=== PATIENT | male | born 1935 | race Caucasian/White ===

== ENCOUNTER 2021-07-04 12:11 | Observation (INO) ==
[2021-07-04 14:34] LABS: ABS Basophils 0.1 10^3/ul (0-0.2); ABS Eosinophils 0.3 10^3/ul (0-0.6); ABS Lymphocytes 0.5 10^3/ul (1.0-4.8); ABS Monocytes 0.4 10^3/ul (0-0.8); ABS Neutrophils 5.4 10^3/ul (1.5-7.7); Eosinophil % 4.7 %; Hematocrit 23 % (42-52); Hemoglobin 7.6 g/dL (14.0-18.0); Lymphocyte % 6.7 %; Mean Corpuscular HGB Conc 33 g/dL (31-36); Mean Corpuscular Hemoglobin 28 pg (27-31); Mean Corpuscular Volume 84 fL (80-94); Mean Platelet Volume 6.7 fL (7.4-10.4); Platelet Count 255 10^3/uL (150-450); Red Blood Count 2.74 10^6 /uL (4.18-5.48); Red Cell Distribution Width 16 % (10-15); White Blood Count 6.8 10^3/uL (3.5-10.8)
[2021-07-04 14:46] LABS: Activated Partial Thrombo Time 31.6 seconds (26.0-38.0); INR 1.13 (0.86-1.15)
[2021-07-04 14:54] LABS: Troponin I 0.01 ng/mL (<0.03)
[2021-07-04 15:06] LABS: Albumin 3.2 g/dL (3.2-5.2); C Reactive Protein 89.84 mg/L (<8.01); Calcium 8.1 mg/dL (8.6-10.3); EGFR African American 43.4 (>60); EGFR Non-African American 35.9 (>60); Globulin 3.1 g/dL (2-4); Magnesium 2.1 mg/dL (1.9-2.7); Potassium 4.7 mmol/L (3.5-5.0); Total Bilirubin 0.2 mg/dL (0.2-1.0); Total Protein 6.3 g/dL (6.4-8.9)
[2021-07-04 16:02] LABS: Erythrocyte Sed Rate > 120 mm/Hr (0-19)
[2021-07-04 17:19] LABS: Urine Appearance Cloudy; Urine Bilirubin Negative (Negative); Urine Blood 3+ (Negative); Urine Color Yellow; Urine Glucose Negative (Negative); Urine Ketones Negative (Negative); Urine Nitrite Negative (Negative); Urine Protein 2+(100 mg/dL) (Negative); Urine Specific Gravity 1.013 (1.002-1.030); Urine Urobilinogen Negative (Negative)
[2021-07-04 17:25] LABS: Urine Bacteria 1+ (Absent); Urine Red Blood Cell 3+(>10/hpf) (Absent); Urine Squamous Epithelial Cell Present (Absent); Urine White Blood Cell 3+(>20/hpf) (Absent)
[2021-07-04] MEDS ORDERED: cefTRIAXone 1 gm/50 mL NS BAG 1 GM/50 ML BAG IV ONE (17:33)
[2021-07-04] MEDS ORDERED: Gabapentin 600 mg TAB (NF) PO ONE (18:29)
[2021-07-04 22:15] LABS: TSH Ultra Thyroid Stim Horm 2.08 mcIU/mL (0.34-5.60)
[2021-07-04] MEDS ORDERED: HYDROcodone/ACETAMIN 5/325 mg TAB PO PRN (22:26)
[2021-07-04] MEDS ORDERED: Pantoprazole VIAL 40 MG VIAL IV ONE (22:56)
[2021-07-04] MEDS ORDERED: Dextrose 50% Syringe 50 ml 25 GM/50 ML SYRINGE IV PUSH PRN (22:58)
[2021-07-04 23:25] LABS: Hematocrit 25 % (42-52); Hemoglobin 8.6 g/dL (14.0-18.0); Mean Corpuscular HGB Conc 34 g/dL (31-36); Mean Corpuscular Hemoglobin 29 pg (27-31); Mean Corpuscular Volume 85 fL (80-94); Mean Platelet Volume 6.8 fL (7.4-10.4); Platelet Count 238 10^3/uL (150-450); Red Blood Count 3.01 10^6 /uL (4.18-5.48); Red Cell Distribution Width 16 % (10-15); White Blood Count 9.4 10^3/uL (3.5-10.8)
[2021-07-04] MEDS: Pantoprazole 80 mg in NS BAG 80 MG/250 ML BAG IV SCH (23:37)
[2021-07-05 05:01] LABS: ABS Basophils 0.1 10^3/ul (0-0.2); ABS Eosinophils 0.4 10^3/ul (0-0.6); ABS Lymphocytes 0.6 10^3/ul (1.0-4.8); ABS Monocytes 0.7 10^3/ul (0-0.8); ABS Neutrophils 6.2 10^3/ul (1.5-7.7); Eosinophil % 5.2 %; Hematocrit 25 % (42-52); Hemoglobin 8.4 g/dL (14.0-18.0); Lymphocyte % 7.2 %; Mean Corpuscular HGB Conc 34 g/dL (31-36); Mean Corpuscular Hemoglobin 28 pg (27-31); Mean Corpuscular Volume 85 fL (80-94); Mean Platelet Volume 6.7 fL (7.4-10.4); Platelet Count 221 10^3/uL (150-450); Red Blood Count 2.95 10^6 /uL (4.18-5.48); Red Cell Distribution Width 16 % (10-15)
[2021-07-05 05:17] LABS: Calcium 7.8 mg/dL (8.6-10.3); EGFR Non-African American 38.8 (>60); Potassium 4.5 mmol/L (3.5-5.0)
[2021-07-05 07:00] LABS: Urine Appearance Turbid; Urine Bilirubin Negative (Negative); Urine Blood 3+ (Negative); Urine Color Yellow; Urine Glucose Negative (Negative); Urine Ketones Negative (Negative); Urine Nitrite Negative (Negative); Urine Protein 1+(30 mg/dL) (Negative); Urine Specific Gravity 1.013 (1.002-1.030); Urine Urobilinogen Negative (Negative)
[2021-07-05 07:29] LABS: Urine Creatinine Concentration 51.86 mg/dL
[2021-07-05 07:33] LABS: Urine Bacteria Absent (Absent); Urine Red Blood Cell 3+(>10/hpf) (Absent); Urine White Blood Cell 3+(>20/hpf) (Absent)
[2021-07-05] MEDS ORDERED: Nystatin TOP POWDER 15 GM BTL TOPICAL SCH (09:00)
[2021-07-05] MEDS ORDERED: Aspirin EC 81 mg TAB.EC (enteric coated) PO SCH (09:00)
[2021-07-05] MEDS: Pantoprazole 80 mg in NS BAG 80 MG/250 ML BAG IV SCH (10:27)
[2021-07-05 14:39] LABS: ABS Basophils 0.1 10^3/ul (0-0.2); ABS Eosinophils 0.3 10^3/ul (0-0.6); ABS Lymphocytes 0.5 10^3/ul (1.0-4.8); ABS Monocytes 0.7 10^3/ul (0-0.8); Hematocrit 24 % (42-52); Hemoglobin 8.5 g/dL (14.0-18.0); Lymphocyte % 6.1 %; Mean Corpuscular HGB Conc 35 g/dL (31-36); Mean Corpuscular Hemoglobin 29 pg (27-31); Mean Corpuscular Volume 83 fL (80-94); Mean Platelet Volume 6.6 fL (7.4-10.4); Platelet Count 235 10^3/uL (150-450); Red Blood Count 2.92 10^6 /uL (4.18-5.48); Red Cell Distribution Width 16 % (10-15); White Blood Count 8.6 10^3/uL (3.5-10.8)
[2021-07-05 15:37] VITALS: BP 142/51
== END 2021-07-05 17:45 | disposition home or self-care (01) ==
LOC: ED 12:11 → MEDTELE 21:40 → INTOOBSV 21:40 → MEDTELE 22:04
PROVIDERS: ADMIT Internal Medicine; ATTEND Student in an Organized Health Care Education/Training Program

== ENCOUNTER 2021-07-28 18:42 | Inpatient (IN) ==
[2021-07-28] MEDS ORDERED: NS 0.9% 1000 ml BAG 1,000 ML IV ONE (18:50)
[2021-07-28] MEDS ORDERED: Iodixanol (CONTRAST) 320 MG/ML 100 ML SDV IV ONE (19:07)
[2021-07-28 19:50] LABS: Hematocrit 24 % (42-52); Hemoglobin 7.8 g/dL (14.0-18.0); Mean Corpuscular HGB Conc 32 g/dL (31-36); Mean Corpuscular Hemoglobin 27 pg (27-31); Mean Corpuscular Volume 85 fL (80-94); Mean Platelet Volume 6.8 fL (7.4-10.4); Platelet Count 236 10^3/uL (150-450); Red Blood Count 2.86 10^6 /uL (4.18-5.48); Red Cell Distribution Width 17 % (10-15); White Blood Count 18.4 10^3/uL (3.5-10.8)
[2021-07-28 20:07] LABS: Albumin 2.9 g/dL (3.2-5.2); Albumin/Globulin Ratio 0.9 (1-3); Calcium 7.4 mg/dL (8.6-10.3); EGFR Non-African American 38.8 (>60); Globulin 3.1 g/dL (2-4); HDL Cholesterol 34.7 mg/dL; Potassium 4.3 mmol/L (3.5-5.0); Total Bilirubin 0.5 mg/dL (0.2-1.0)
[2021-07-28 20:09] LABS: Activated Partial Thrombo Time 30.7 seconds (26.0-38.0); INR 1.26 (0.86-1.15); Troponin I 0.02 ng/mL (<0.03)
[2021-07-28 20:10] LABS: ABS Basophils 0.1 10^3/ul (0-0.2); ABS Eosinophils 0.1 10^3/ul (0-0.6); ABS Lymphocytes 0.3 10^3/ul (1.0-4.8); ABS Monocytes 0.8 10^3/ul (0-0.8); ABS Neutrophils 17.1 10^3/ul (1.5-7.7); Eosinophil % 0.3 %; Lymphocyte % 1.7 %
[2021-07-28] MEDS ORDERED: Pantoprazole 80 mg in NS BAG 80 MG/250 ML BAG IV ONE (20:30)
[2021-07-28] MEDS ORDERED: cefTRIAXone 1 gm/50 mL NS BAG 1 GM/50 ML BAG IV ONE (21:21)
[2021-07-28] MEDS ORDERED: Azithromycin 500 mg/250 ml NS 500 MG/250 ML BAG IVPB ONE (21:21)
[2021-07-28 22:14] LABS: Urine Appearance Turbid; Urine Bilirubin Negative (Negative); Urine Blood 2+ (Negative); Urine Color Yellow; Urine Glucose Negative (Negative); Urine Ketones Trace (Negative); Urine Nitrite Negative (Negative); Urine Protein 3+(>=500 mg/dL) (Negative); Urine Specific Gravity 1.035 (1.002-1.030); Urine Urobilinogen Negative (Negative)
[2021-07-28 22:35] LABS: Urine Bacteria Absent (Absent); Urine Red Blood Cell 3+(>10/hpf) (Absent); Urine White Blood Cell 3+(>20/hpf) (Absent)
[2021-07-28] MEDS ORDERED: LORazepam 2 mg VIAL 1 ml IV PUSH PRN (23:50)
[2021-07-28] MEDS ORDERED: Lorazepam PYXIS KEY PRN (23:50)
[2021-07-29] MEDS: Morphine 2 MG/ML SYRINGE IV PRN ×5 (00:19→21:02)
[2021-07-29] MEDS ORDERED: Nystatin TOP POWDER 15 GM BTL TOPICAL PRN (05:02)
[2021-07-29] MEDS ORDERED: Atropine 1% (ORAL/SL) 15 ML BTL SL PRN (05:02)
[2021-07-30] MEDS: Morphine 2 MG/ML SYRINGE IV PRN ×4 (04:58→20:54)
[2021-07-30 16:33] VITALS: BP 116/95
[2021-07-31] MEDS: Morphine 2 MG/ML SYRINGE IV PRN ×3 (05:32→19:56)
[2021-07-31] MEDS ORDERED: guaiFENesin/CODIENE 100mg/10mg 5 ML UDC PO PRN (16:36)
[2021-08-01] MEDS: Morphine 2 MG/ML SYRINGE IV PRN (03:34)
== END 2021-08-01 08:28 | disposition expired | DRG 177 ==
LOC: ED 18:42 → MED 18:42 → SUATTDRO 23:50
PROVIDERS: ADMIT Hospitalist; ATTEND Internal Medicine